=== PATIENT | female | born 1975 | race Caucasian/White ===

== ENCOUNTER 2017-07-24 04:10 | Inpatient (IN) | payer OTHER ==
[~2017-07-24] VITALS: Ht 165.1 cm; Wt 50.4 kg
[2017-07-24 04:18] VITALS: Ht 165.1 cm; Wt 50.4 kg
[2017-07-24 06:29] LABS: BASOPHIL % 0.2 % (0-2); PLATELET COUNT 257 x10^3mcL (130-400)
[2017-07-24 06:41] LABS: RED CELL DISTRIBUTION WIDTH 15.6 % (11.5-14.5)
[2017-07-24 07:09] LABS: CARBON DIOXIDE 27.4 mmol/L (21-32); CHLORIDE SERUM 100 mmol/L (98-107); CREATININE SERUM 0.6 mg/dL (0.6-1.0); GFR1 > 60 mL/min; GLUCOSE SERUM 95 mg/dL (74-106); POTASSIUM SERUM 3.3 mmol/L (3.5-5.1); SODIUM SERUM 137 mmol/L (136-145)
[2017-07-24 07:14] LABS: ALBUMIN 3.9 g/dL (3.4-5.0); AST/SGOT 19 U/L (15-37); BILIRUBIN TOTAL 0.43 mg/dL (0.20-1.00); CALCIUM 8.6 mg/dL (8.5-10.1); TOTAL PROTEIN, SERUM 7.8 g/dL (6.4-8.2)
[2017-07-24 07:15] LABS: ALKALINE PHOSPHATASE 86 U/L (46-116); ALT/SGPT 16 U/L (14-59)
[2017-07-24 07:59] VITALS: BP 122/77
[2017-07-24 08:29] LABS: T3 TOTAL 1.21 ng/mL
[2017-07-24 10:00] LABS: MAGNESIUM 1.8 mg/dL (1.8-2.4); PHOSPHOROUS 1.3 mg/dL (2.5-4.9)
[2017-07-24 10:38] LABS: FREE T4 1.04 ng/dL (0.76-1.46)
[2017-07-24 17:39] VITALS: BP 118/92
[2017-07-24 17:40] VITALS: BP 118/92
[2017-07-24 17:47] VITALS: BP 118/92
[2017-07-24] MEDS ORDERED: PAXIL10 MG PO (17:57)
[2017-07-24] MEDS ORDERED: ATIVAN0.5 M1 PO (17:57)
== END 2017-07-24 18:31 | disposition home or self-care (01) | DRG 776 ==
LOC: ED 04:10 → DU 05:31
PROVIDERS: Emergency Medicine; Family Medicine
DX: F13.239 Sedative, hypnotic or anxiolytic dependence with withdrawal, unspecified (principal); G92 Toxic encephalopathy; E83.39 Other disorders of phosphorus metabolism; R56.9 Unspecified convulsions; T42.4X5A Adverse effect of benzodiazepines, initial encounter; Y92.9 Unspecified place or not applicable; Z88.8 Allergy status to other drugs, medicaments and biological substances; E87.6 Hypokalemia; F41.9 Anxiety disorder, unspecified; F41.0 Panic disorder [episodic paroxysmal anxiety]
CPT/HCPCS: 83880; 84439; G0480; J7030; Q0092